=== PATIENT | female | born 1965 | race Caucasian/White ===

== ENCOUNTER 2017-07-04 11:14 | Emergency (ER) | payer MEDICARE, MEDICAID ==
[2017-07-04] MEDS ORDERED: ACETAMINOPHEN 325 MG TABLET PO STA (11:55)
--- NOTE | 2017-07-04 11:58 | ED Physician Documentation ---
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 has had progressive L foot pain for a month started with thrid toe now progressed to lateral foot no open wound no redness no fever some swelling no trauma has not seen PMD for this [place] Review of Systems Constitutional: denies: Fever Skin: denies: Rash Musculoskeletal: reports: Extremity pain Immunocompromised: denies: Immunocompromised PD PAST MEDICAL HISTORY - Past Medical History Past Medical History: Yes Cardiovascular: Hypertension Endocrine/Autoimmune: Type 2 diabetes Psych: Depression, Anxiety, Other Other Past Medical History: OCD - Past Surgical History Past Surgical History: No - Present Medications Home Medications: Ambulatory Orders Medication Instructions Recorded Confirmed Aspirin 07/04/17 Cephalexin [Keflex] 500 mg PO Q6H #28 capsule 07/04/17 Lisinopril 07/04/17 OLANZapine [Zyprexa] 07/04/17 PARoxetine [Paxil] 07/04/17 Sertraline [Zoloft] 07/04/17 busPIRone [Buspar] 07/04/17 metFORMIN [Glucophage] 07/04/17 - Allergies Allergies/Adverse Reactions: Allergies Allergy/AdvReac Type Severity Reaction Status Date / Time No Known Drug Allergies Allergy Verified 07/04/17 11:22 - Social History Does the pt smoke?: Yes Smoking Status: Current every day smoker Does the pt drink ETOH?: No Does the pt have substance abuse?: No - Immunizations Immunizations are current?: No Immunizations: TDAP >10years/unknown, Other immun current PD ED PE NORMAL - Vitals Vital signs reviewed: Yes - Cardiac Cardiac: RRR - Respiratory Respiratory: No respiratory distress, Clear bilaterally - Extremities Extremities: Other (L foot, no open wounds, no tines, long toenail s infection, TTP slight swellign slight warmth to lateral foot, not any specific jt like gout , no redness, strong pedal pulse, MS intact) Results - Vitals Vitals: Vital Signs - 24 hr 07/04/17 11:19 Temperature 37 C Heart Rate 102 H Respiratory 18 Rate Blood Pressure 124/83 H O2 Saturation 99 Oxygen O2 Source Room air - Labs Labs: Laboratory Tests 07/04/17 12:19 POC Whole Bld Glucose 107 H - Rads (name of study) L foot Radiology: See rad report (no acute) PD MEDICAL DECISION MAKING - ED course ED course: FSBS 107 Departure - Departure Disposition: 01 Home, Self Care Clinical Impression: Foot pain, left Condition: Good Prescriptions: Cephalexin [Keflex] 500 mg PO Q6H #28 capsule Comments: The xray was fine - no broken bones or bone infection seen Your foot exam is not typical for an infection, there is no redness or abscess or open wound. Its is a little bit swollen and warm to the outer foot - this could be due to inflammation or infection. I recommend you try an CA wrap ice and elevation for three days - motrin and tylenol for the pain. If the pain and swelling persist after three days of conservative treatment, then you can try the antibiotic i prescribed Return or see your PMD if worse. Follow up with your PMD next week either way
[2017-07-04] MEDS ORDERED: ACETAMINOPHEN 325 MG TABLET PO ONE (12:16)
--- NOTE | 2017-07-04 12:49 | XRAY Preliminary Report ---
Exam: XR FOOT 3 VIEW LT IMPRESSION: 1. No acute osseous abnormality. [facility] SITE ID: [id number]
--- NOTE | 2017-07-04 12:52 | XRAY Report ---
EXAM: LEFT FOOT RADIOGRAPHY EXAM DATE: 07/04/2017 12:13 PM. CLINICAL HISTORY: L foot pain, lateral, swelling. COMPARISON: None. TECHNIQUE: 3 views. FINDINGS: Bones: No fractures or bone lesions. Joints: Unremarkable. Soft Tissues: There is mild soft tissue swelling in the region of the forefoot. IMPRESSION: 1. No acute osseous abnormality. [facility] Referring Provider Line: [phone] SITE ID: [id number]
[2017-07-04 13:06] VITALS: BP 111/78
== END 2017-07-04 13:10 | disposition home or self-care (01) ==
LOC: ED 11:14
DX: M79.672 Pain in left foot (principal); I10 Essential (primary) hypertension; E11.9 Type 2 diabetes mellitus without complications; Z79.84 Long term (current) use of oral hypoglycemic drugs; Z86.14 Personal history of Methicillin resistant Staphylococcus aureus infection; Z79.82 Long term (current) use of aspirin; F17.200 Nicotine dependence, unspecified, uncomplicated
CPT/HCPCS: 73630; 99283; A9270

== ENCOUNTER 2020-12-12 08:36 | Emergency (ER) | payer MEDICARE, MEDICAID ==
--- NOTE | 2020-12-12 09:33 | ED Physician Documentation ---
History of Present Illness - Stated complaint Stated Complaint: RT FOOT SWELLING - Chief complaint Chief Complaint: Ext Problem - History obtained from History obtained from: Patient - History of Present Illness Timing: How many weeks ago (2-3) Pain level max: 0 Pain level now: 0 - Additonal information Additional information: Patient a 55-year-old female who presents to the emergency department the right lower extremity swelling. She states that this started 2 to 3 weeks ago. She states it started on her foot and is moved up to her calf. She states she noticed a mild rash on her calf as well. Not itchy. Nothing makes it better or worse. No changes to her medications. No recent surgeries. No recent trauma or travel. She states that she did recently [place] back home with her mother. Review of Systems Constitutional: denies: Fever, Chills Nose: denies: Rhinorrhea / runny nose, Congestion Throat: denies: Sore throat Cardiac: denies: Chest pain / pressure, Palpitations Respiratory: denies: Dyspnea, Cough, Hemoptysis, Wheezing GI: denies: Vomiting, Diarrhea Skin: denies: Rash Musculoskeletal: denies: Neck pain, Back pain Neurologic: denies: Headache PD PAST MEDICAL HISTORY - Past Medical History Past Medical History: Yes Cardiovascular: Hypertension Endocrine/Autoimmune: Type 2 diabetes Psych: Depression, Anxiety, Other - Past Surgical History Past Surgical History: No - Present Medications Home Medications: Ambulatory Orders Medication Instructions Recorded Confirmed Aspirin 81 mg PO DAILY 07/04/17 OLANZapine [Zyprexa] 5 mg PO DAILY 07/04/17 PARoxetine [Paxil] 40 mg PO DAILY 07/04/17 Sertraline [Zoloft] 100 mg PO DAILY 07/04/17 busPIRone [Buspar] 10 mg PO DAILY 07/04/17 lisinopriL [Lisinopril] 07/04/17 metFORMIN [Glucophage] 07/04/17 cephALEXin [Keflex] 500 mg PO Q6H #28 cap 12/12/20 - Allergies Allergies/Adverse Reactions: Allergies Allergy/AdvReac Type Severity Reaction Status Date / Time No Known Drug Allergies Allergy Verified 12/12/20 09:10 - Social History Does the pt smoke?: Yes Smoking Status: Current every day smoker Does the pt drink ETOH?: No Does the pt have substance abuse?: No - Immunizations Immunizations are current?: Yes Immunizations: TDAP >10years/unknown, Other immun current - POLST Patient has POLST: No PD ED PE NORMAL - Vitals Vital signs reviewed: Yes - General General: Alert and oriented X 3, No acute distress - HEENT HEENT: Moist mucous membranes - Neck Neck: Supple, no meningeal sign - Cardiac Cardiac: RRR - Respiratory Respiratory: No respiratory distress, Clear bilaterally - Derm Derm: Warm and dry - Extremities Extremities: Other (Minimal swelling to the right foot, mild swelling to the right calf. No pitting edema. Neurovascularly intact. Very mild erythema without warmth or tenderness. otherwise normal examination of the right lower extremity) - Neuro Neuro: Alert and oriented X 3 - Psych Psych: Normal mood, Normal affect Results - Vitals Vitals: Vital Signs - 24 hr 12/12/20 12/12/20 12/12/20 08:58 09:03 11:10 Temperature 36.7 C Heart Rate 84 83 87 Respiratory 16 16 18 Rate Blood Pressure 141/83 H 129/86 H 123/84 H O2 Saturation 97 98 98 Oxygen O2 Source Room air - Labs Labs: Laboratory Tests 12/12/20 12/12/20 12/12/20 09:34 09:34 09:34 WBC 7.9 RBC 4.78 Hgb 15.0 Hct 44.9 MCV 93.9 MCH 31.4 H MCHC 33.4 RDW 12.9 Plt Count 306 MPV 9.0 Neut # (Auto) 6.0 Lymph # (Auto) 1.5 Wayne # (Auto) 0.4 Eos # (Auto) 0.0 Baso # (Auto) 0.0 Absolute Nucleated RBC 0.00 Nucleated RBC % 0.0 ESR 14 Sodium 141 Potassium 4.1 Chloride 107 Carbon Dioxide 24 Anion Gap 10.0 BUN 9 Creatinine 0.9 Estimated GFR (MDRD) 65 L Glucose 118 H Calcium 9.6 C-Reactive Protein < 1.0 - Rads (name of study) duplex US RLE Radiology: Prelim report reviewed, EMP read contemporaneously, See rad report (no DVT. + bakers cyst) PD MEDICAL DECISION MAKING - ED course Complexity details: reviewed results, considered differential, d/w patient ED course: 55-year-old female with possible mild cellulitis of the right lower extremity. We will place her on Keflex. No DVT on ultrasound. Does have a Eason's cyst. We will have her follow-up with her doctor for further care. Patient counseled regarding signs and symptoms for which I believe and urgent re-evaluation would be necessary. Patient with good understanding of and agreement to plan and is comfortable going home at this time This document was made in part using voice recognition software. While efforts are made to proofread this document, sound alike and grammatical errors may occur. Departure - Departure Disposition: Home, Self Care Clinical Impression: Peripheral edema Cellulitis Qualifiers: Site of cellulitis: extremity Site of cellulitis of extremity: lower extremity Laterality: right Qualified Code(s): L03.115 - Cellulitis of right lower limb Bakers cyst Qualifiers: Laterality: right Qualified Code(s): M71.21 - Synovial cyst of popliteal space [Eason], right knee Condition: Good Instructions: ED Cyst Eason, ED Infec Skin Cellulitis, ED Leg Swelling Unilateral Follow-Up: LALO JARA ARNP [Primary Care Provider] - Within 1 week Prescriptions: cephALEXin [Keflex] 500 mg PO Q6H #28 cap Comments: Thankfully there is no blood clot on your ultrasound. Please follow-up with your doctor for recheck in about 1 week. We will trial you on Keflex to see if this helps your symptoms. Return if you worsen Discharge Date/Time: 12/12/20 11:30
[2020-12-12 09:42] LABS: BASOPHILS % (AUTO) 0.3 %; EOSINOPHILS % (AUTO) 0.1 %; HCT - HEMATOCRIT 44.9 % (37.0-47.0); LYMPHOCYTES # (AUTO) 1.5 10^3/uL (1.5-3.5); LYMPHOCYTES % (AUTO) 19.2 %; MEAN CORPUSCULAR HEMOGLOBIN 31.4 pg (27.0-31.0); MEAN CORPUSCULAR HGB CONC 33.4 g/dL (32.0-36.0); MEAN CORPUSCULAR VOLUME 93.9 fL (81.0-99.0); MONOCYTES # (AUTO) 0.4 10^3/uL (0.0-1.0); MONOCYTES % (AUTO) 4.5 %; NEUTROPHILS % (AUTO) 75.6 %; PLT - PLATELET COUNT 306 10^3/uL (130-450); RED BLOOD COUNT 4.78 10^6/uL (4.20-5.40); RED CELL DISTRIBUTION WIDTH 12.9 % (12.0-15.0); WHITE BLOOD COUNT 7.9 x10^3/uL (4.8-10.8)
[2020-12-12 10:01] LABS: BUN - BLOOD UREA NITROGEN 9 mg/dL (6-20); CALCIUM 9.6 mg/dL (8.5-10.3); CARBON DIOXIDE - CO2 24 mmol/L (21-32); CHLORIDE 107 mmol/L (101-111); CREATININE 0.9 mg/dL (0.4-1.0); CRP - C-REACTIVE PROTEIN < 1.0 mg/dL (0-1.0); GFR - MDRD 65 (>89); GLUCOSE 118 mg/dL (70-100); POTASSIUM 4.1 mmol/L (3.5-5.0); SODIUM 141 mmol/L (135-145)
[2020-12-12 11:11] VITALS: BP 123/84
--- NOTE | 2020-12-12 11:24 | Ultrasound Report ---
PROCEDURE: Duplex Ext Veins Right INDICATIONS: R LE swelling TECHNIQUE: Real-time imaging, as well as color and pulse Doppler interrogation, were performed of the lower extr emity deep veins from the inguinal ligament to the popliteal fossa. COMPARISON: None. FINDINGS: The deep veins are normally compressible, and free of intraluminal thrombus. Color and pu lse Doppler demonstrate normal phasic intraluminal flow. There is normal augmentation response to di stal compression maneuver. There is a right-sided popliteal cyst measures 3.7 x 8.4 x 1.5 cm in size contains internal thin sept ation. IMPRESSION: 1. No evidence of DVT in visualized right lower extremity veins. 2. 8.4 x 1.5 x 3.7 cm right popliteal cyst as above. Reviewed by: Jerrod Honeycutt MD on 12/12/2020 11:22 AM PDT Approved by: Jerrod Honeycutt MD on 12/12/2020 11:22 AM PDT Station ID: [id number]
== END 2020-12-12 11:30 | disposition home or self-care (01) ==
LOC: ED 08:36
DX: L03.115 Cellulitis of right lower limb (principal); M71.21 Synovial cyst of popliteal space [Baker], right knee; I10 Essential (primary) hypertension; F17.200 Nicotine dependence, unspecified, uncomplicated; E11.9 Type 2 diabetes mellitus without complications; Z79.84 Long term (current) use of oral hypoglycemic drugs
CPT/HCPCS: 36415; 80048; 85025; 85651; 86140; 99284